=== PATIENT | female | born 1975 | race Native Hawaiian/Other Pacific Islander ===

== ENCOUNTER 2022-07-26 11:50 | Outpatient (CLI) | payer BC | END 2022-07-26 19:28 | disposition home or self-care (01) | LOC: RAD 11:50 | PROVIDERS: ATTEND Nurse Practitioner Primary Care | DX: M54.59 Other low back pain (principal) ==

== ENCOUNTER 2022-08-02 10:49 | Outpatient (CLI) | payer BC | END 2022-08-02 19:14 | disposition home or self-care (01) | LOC: RAD 10:49 | PROVIDERS: ATTEND Nurse Practitioner Primary Care | DX: R07.9 Chest pain, unspecified (principal) | CPT/HCPCS: 93005 ==